=== PATIENT | female | born 1975 | race Caucasian/White ===

== ENCOUNTER → 2020-12-22 | Outpatient (REF) | payer MEDICARE, MEDICAID ==
[2020-12-22 15:26] LABS: HEMATOCRIT 39.5 % (36.0-47.0); HEMOGLOBIN 13.1 g/dl (12.0-15.5); MEAN CORPUSCULAR HEMOGLOBIN 31.6 pg (27.0-33.0); MEAN CORPUSCULAR HGB CONC 33.2 g/dl (32.0-36.5); MEAN CORPUSCULAR VOLUME 95.4 fl (80.0-96.0); PLATELET COUNT, AUTOMATED 193 10^3/uL (150-450); RED BLOOD COUNT 4.14 10^6/uL (4.00-5.40); WHITE BLOOD COUNT 6.1 10^3/uL (4.0-10.0)
[2020-12-22 15:34] LABS: FREE T4 0.91 NG/DL (0.76-1.46); THYROID STIMULATING HORMONE 1.1 uIU/ML (0.358-3.740)
[2020-12-22 15:35] LABS: FOLLICLE STIMULATING HORMONE 10.4 mIU/mL; LUTEINIZING HORMONE 4.6 mIU/mL
== END ==
LOC: M PLALAB 12:04
PROVIDERS: ATTEND Obstetrics & Gynecology
DX: N92.1 Excessive and frequent menstruation with irregular cycle (principal); N94.6 Dysmenorrhea, unspecified

== ENCOUNTER → 2021-01-19 | Outpatient (REF) | payer MEDICARE, MEDICAID | LOC: M PLALAB 15:14 | PROVIDERS: ATTEND Obstetrics & Gynecology | DX: Z12.4 Encounter for screening for malignant neoplasm of cervix (principal); R87.618 Other abnormal cytological findings on specimens from cervix uteri | CPT/HCPCS: 87624; G0101; G0123 ==

== ENCOUNTER → 2021-02-07 | Outpatient (CLI) | payer MEDICARE, MEDICAID ==
--- NOTE | 2021-02-07 12:50 | REPMRS ---
Patient History The patient states she has not had a clinical breast exam in over a year. Family history of breast cancer at age 55 in maternal grandmother, breast cancer in paternal grandmother, breast cancer at age 60 in maternal aunt, prostate cancer at age 57 in maternal uncle. Patient states no breast complaints today. Patient has signed MRS History Sheet. Digital Woman Screen Mammo: February 07, 2021 - Exam #: [id number] Bilateral CC and MLO view(s) were taken. Technologist: Chyna Mcmullen, Technologist No prior studies available for comparison. FINDINGS: The breast tissue is heterogeneously dense. This may lower the sensitivity of mammography. The Volpara volumetric breast density category is: C. There is no evidence of dominant mass, architectural distortion, or grouped microcalcification typical of malignancy. 3-D tomosynthesis shows no additional findings. Assessment: BI-RADS/ACR category 1 mammogram. Negative Mammogram. Recommendation Routine screening mammogram of both breasts in 1 year (for women over age 40). This patient's [facility] Lifetime Breast Cancer RIsk is estimated at 19.1 %. This mammogram was interpreted with the aid of an FDA-approved computer-aided dectection system. Electronically Signed By: Samuel Mendez MD 02/07/21 1750
== END ==
LOC: M WHC 12:13
PROVIDERS: ATTEND Obstetrics & Gynecology
DX: Z12.31 Encounter for screening mammogram for malignant neoplasm of breast (principal)

== ENCOUNTER → 2021-02-21 | Outpatient (CLI) | payer MEDICARE, MEDICAID ==
[~2021-02-21] MED LIST: ATIV1TAB10 PO; CLON0.2T PO; FLUTISP; LITH300C PO; PROZ40CA PO
== END ==
LOC: M LABSMTC 09:52
PROVIDERS: ATTEND Anesthesiology
DX: Z01.818 Encounter for other preprocedural examination (principal); Z11.52 Encounter for screening for COVID-19

== ENCOUNTER 2021-02-25 07:46 | Day surgery (SDC) | payer MEDICARE, MEDICAID ==
[~2021-02-25] VITALS: Ht 162.6 cm; Wt 71.8 kg
[~2021-02-25 07:46] MED LIST changes: +BUPIVACAINE HCL 0.25% 30ML VIAL As Ordered ONE; +LR 1,000 ML IV ONE; +SILVER NITRATE APPLICATOR As Ordered ONE
[2021-02-25 08:08] LABS: HEMATOCRIT 42.8 % (36.0-47.0); HEMOGLOBIN 14.8 g/dl (12.0-15.5)
[2021-02-25] MEDS ORDERED: ASPI81TA26 PO (08:10)
[2021-02-25] MEDS ORDERED: SUCR1ORA PO (08:10)
[2021-02-25] MEDS ORDERED: PAXI37.56 PO (08:10)
[2021-02-25 08:34] LABS: HCG, SERUM QUALITATIVE NEGATIVE (NEGATIVE)
[2021-02-25] MEDS ORDERED: VENTAER INH (08:43)
[2021-02-25] MEDS ORDERED: PERC5TAB12 PO (09:03)
[2021-02-25] MEDS ORDERED: COLA100C5 PO (09:03)
[2021-02-25] MEDS ORDERED: MIDAZOLAM INJ 2MG/2ML VIAL (J2250 PER 1MG) As Ordered ONE (11:31)
[2021-02-25] MEDS ORDERED: dexameTHASONE 4 MG/ML 1ML VIAL (J1100 PER 1MG) As Ordered ONE (11:32)
[2021-02-25] MEDS ORDERED: LIDOCAINE 2% 100MG/5ML SDV (FOR ANES.) As Ordered ONE (11:32)
[2021-02-25] MEDS ORDERED: propofoL 200 MG/20 ML VIAL As Ordered ONE ×2 (11:32→12:59)
[2021-02-25] MEDS ORDERED: ROCURONIUM BROMIDE 50 MG/5 ML VIAL As Ordered ONE (11:32)
[2021-02-25] MEDS ORDERED: fentaNYL 100 MCG/2 ML INJECTION (J3010) As Ordered ONE ×2 (12:30→14:42)
[2021-02-25] MEDS ORDERED: BUPIVACAINE HCL 0.25% 30ML VIAL As Ordered ONE (12:33)
[2021-02-25] MEDS ORDERED: ACETAMINOPHEN 1000MG 100ML IV BTL (OFIRMEV) (J0131 PER 10MG) As Ordered ONE (12:50)
[2021-02-25] MEDS ORDERED: GLYCOPYRROLATE INJ 0.2 MG/ML 2 ML VIAL As Ordered ONE (12:53)
[2021-02-25] MEDS ORDERED: METOCLOPRAMIDE INJ 10MG/2ML VIAL (J2765 PER 1) As Ordered ONE (13:00)
[2021-02-25] MEDS ORDERED: ONDANSETRON 4MG/2ML VIAL As Ordered ONE (13:00)
[2021-02-25] MEDS ORDERED: SUGAMMADEX SODIUM 500 MG/5 ML VIAL (BRIDION) As Ordered ONE (13:00)
[2021-02-25] MEDS ORDERED: HYDROmorphone HCL 2 MG/ML 1ML VIAL (J1170) As Ordered ONE (13:50)
[2021-02-25] MEDS ORDERED: HYDROMORPHONE HCL 0.5 MG/ 0.5 ML SYRINGE (J1170 PER 1) IV PRN (14:45)
[2021-02-25] MEDS ORDERED: ONDANSETRON 4MG/2ML VIAL IV PRN (14:45)
[2021-02-25] MEDS ORDERED: LR 1,000 ML IV SCH (14:45)
[2021-02-25] MEDS: fentaNYL 100 MCG/2 ML INJECTION (J3010) IV PRN ×4 (14:54→15:16)
[2021-02-25] MEDS: oxyCODONE 5MG TAB PO PRN ×2 (15:07→15:34)
--- NOTE | 2021-02-25 16:06 | RO ---
OPERATIVE NOTE DATE OF OPERATION: 02/25/2021 PREOPERATIVE DIAGNOSIS: Menorrhagia and dysmenorrhea. POSTOPERATIVE DIAGNOSIS: Menorrhagia, dysmenorrhea, intraabdominal adhesions, uterine anomaly. PROCEDURE PERFORMED: Diagnostic and operative laparoscopy with lysis of adhesions; bilateral salpingectomy and diagnostic hysteroscopy. 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 ANESTHESIA: INDICATION FOR OPERATION: Karin is a 45-year-old G7, now 6,0,1,6 who presented to the office with complaints of menorrhagia and dysmenorrhea. She has history of vaginal sling for urinary incontinence as well as laparoscopic bilateral tubal ligation. We discussed doing a diagnostic laparoscopy, possible opportunistic bilateral salpingectomy and when counseled on all options for treatment of menorrhagia she elected to try the NovaSure endometrial ablation. MATERIAL FORWARDED TO THE LAB: Bilateral fallopian tubes. DESCRIPTION OF FINDINGS: Uterus sounded to 8 cm. Cervix 4 cm in length. Laparoscopic findings included normal appearing liver edge and appendix, although the cecum and bowel on the right side was adhered to the right sidewall with filmy adhesions. The ovaries were normal in appearance. 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 The uterus was overall normal in appearance with the exception of some scarring at the intersection of the uterus and bladder and there were some filmy adhesions of the uterus to the pelvis near the right uterosacral. There was thick adhesion of the omentum to the anterior abdominal wall and on hysteroscopy there was a noted uterine anomaly. It was difficult for me to tell whether there was a very thick septum versus scarring within the uterus right at the center of the fundus but either way it would have been impossible to complete the NovaSure so that was not completed. INFECTION CLASSIFICATION: 2. ESTIMATED BLOOD LOSS: 10 mL. IV FLUIDS: 700 mL lactated Ringer's. URINE OUTPUT: 150 mL clear yellow urine. DESCRIPTION OF PROCEDURE: After obtaining informed consent the patient was taken to the operating room, general endotracheal anesthesia was established. She was placed in low lithotomy position. The patient was prepped and draped in usual sterile fashion. She was placed in Trendelenburg position, Olvera catheter was placed. Portage speculum was placed in the vagina and visualization of the cervix was obtained. Anterior lip of the cervix was grasped with single tooth tenaculum. Uterus sounded to 8 cm. The cervix itself was 4 cm. The [place]ka uterine manipulator was placed through the cervix into the uterus and the tenaculum was removed and site hemostasis obtained. The bivalve speculum was removed. The patient was taken out of Trendelenburg position and 5 mm incision was made on the infraumbilical fold beneath the subcutaneous tissue after anesthetizing with 0.25% Marcaine. Lower abdominal wall was manually grasped and lifted up and Optiview trocar was placed with 90 degree angle. The laparoscope was advanced through the port and intraabdominal placement was confirmed. There was no injury noted below the point of entry. Continuous flow CO2 began to establish pneumoperitoneum at 15 mmHg pressure. At that point I placed two other 5 mm incisions on the patient's right side, one in the right lower quadrant and one in the right upper quadrant. The 5 mm incisions were made after anesthetizing with 0.25% Marcaine. 5 mm trocars were placed under direct visualization. Pelvic and abdominal surveys were conducted beginning at the anterior cul-de-sac and anterior portion of the uterus which showed scarring at the intersection of the bladder and uterus. The right and left fallopian tubes were interrupted by Falope rings. The round ligament, broad ligament and ovaries were observed with overall normal appearance. The posterior cul-de-sac was overall normal with the exception of some filmy adhesions near the right uterosacral ligament from the uterus to the pelvic wall. Survey of the upper abdomen revealed normal appearing appendix but the cecum and bowel near there were adhered with filmy adhesions to the right abdominal wall. The liver edge itself was normal in appearance. Gallbladder was not visualized. There was a large sheet of omentum that was adhered to the anterior abdominal wall. I first removed the fallopian tubes, lifting up the fimbriated end and undermining with the LigaSure device just underneath the fallopian tube, first on the right side and then on the left, removing the full length of the tube including the Falope ring on both right and left sides. They were removed up through the port and sent off to pathology. At this point I took down some of the filmy adhesions near the right uterosacral ligament to open up that space. I was looking for a potential area to biopsy given that my suspicion is these adhesions are related to endometriosis but there was no obvious power burn lesion or any area that would have been discrete sample that would have been good for biopsy. At that point I took down the adhesions that were filmy near the cecum, trying to return the cecum more to its anatomical position. Lastly I did adhesiolysis of the omentum ensuring there was no bowel whatsoever involved in the adhesion, there was only omentum, and making small windows opening up the LigaSure blades and then taking down the __ slowly. I was able to take down the majority of the omental sheet but I left the left furthest aspect of omentum that was adhered still to the left sidewall. There were holes or anywhere the bowel could have come through but I thought at that point that the gain she would have would be minimal. At that point the procedure was terminated. I continued to observe the omentum as the pneumoperitoneum was released to ensure there was no bleeding, which there was not. I removed the trocars on the right side of the abdomen under direct visualization and those were noted to be hemostatic. The pneumoperitoneum was completely released prior to removal of the umbilical port. The incisions were reapproximated with 4-0 Monocryl and Dermabond. At that point I returned my attention to the vagina. The speculum was reinserted and the eyetokka uterine manipulator was removed. A single tooth tenaculum was replaced on the anterior aspect of the cervix and I dilated the cervix using Hanks dilators just to the point where I could then insert the camera to perform the hysteroscopy. The camera was placed up into the fundus of the uterus and with distention from the saline I could then visualize the uterine cavity. It was noted to be abnormal because there was either a very thick septum versus thick scarring at the fundal aspect in the midline of the uterus. I was able to see the ostia of the uterus but there would have been no way to perform the NovaSure safely. So at that point the fluid was removed along with the camera from the uterus. Tenaculum was removed from the anterior portion of the cervix and noted to be hemostatic at the tenaculum sites. The speculum was removed with nothing retained in the vagina and the Olvera catheter was then deflated as well. All counts were correct x2. The patient tolerated the procedure well. She was awakened from general anesthesia and taken to the recovery room in stable condition.
[2021-02-25 16:50] VITALS: BP 94/53
== END 2021-02-25 16:50 | disposition home or self-care (01) ==
LOC: M SDC 07:46
PROVIDERS: ATTEND Obstetrics & Gynecology
DX: N92.0 Excessive and frequent menstruation with regular cycle (principal); N94.6 Dysmenorrhea, unspecified; K66.0 Peritoneal adhesions (postprocedural) (postinfection); J45.909 Unspecified asthma, uncomplicated; Z87.19 Personal history of other diseases of the digestive system; F41.9 Anxiety disorder, unspecified; F32.9 Major depressive disorder, single episode, unspecified; F43.10 Post-traumatic stress disorder, unspecified; I25.2 Old myocardial infarction; E55.9 Vitamin D deficiency, unspecified; G47.00 Insomnia, unspecified; F40.00 Agoraphobia, unspecified; R00.2 Palpitations; F17.210 Nicotine dependence, cigarettes, uncomplicated; Z88.5 Allergy status to narcotic agent; Z88.1 Allergy status to other antibiotic agents; Z79.899 Other long term (current) drug therapy; Z79.82 Long term (current) use of aspirin
CPT/HCPCS: 36415; 58555; 58661; 84703; 85014; 85018; 86850; 86900; 86901; 88302; J0131; J1100; J1170; J2250; J2405; J2765; J3010

== ENCOUNTER 2022-06-09 08:26 | Day surgery (SDC) | payer MEDICARE, MEDICAID ==
[~2022-06-09] VITALS: Ht 162.6 cm; Wt 71.8 kg
[~2022-06-09 08:26] MED LIST changes: +AMOX875T2 PO; +ASPI81TA26 PO; -BUPIVACAINE HCL 0.25% 30ML VIAL As Ordered ONE; +COLA100C5 PO; +ELIQ5TAB PO; +ENOX40IN3 SC; +FERR325T3 PO; +GABA-282 PO; -LR 1,000 ML IV ONE; +METO1TAB32 PO; +NITR100C2 PO; +OFLOSO OTIC; +PARO37.510 PO; +PERC5TAB12 PO; +PROP20TA72 PO; +ROSU10TA6 PO; -SILVER NITRATE APPLICATOR As Ordered ONE; +SUCR1ORA PO; +VENTAER INH; +WARF-23 PO; +WARF4TAB51 PO; +XARE10TA PO; +ceFAZolin SOD 2 GM in IV 1 EA IV ONE
[2022-06-09] MEDS ORDERED: LR 1,000 ML IV SCH ×2 (09:10→12:25)
[2022-06-09 09:23] LABS: HEMATOCRIT 41.1 % (36.0-47.0); HEMOGLOBIN 14.4 g/dl (12.0-15.5); MEAN CORPUSCULAR HEMOGLOBIN 32.7 pg (27.0-33.0); MEAN CORPUSCULAR VOLUME 93.2 fl (80.0-96.0); PLATELET COUNT, AUTOMATED 151 10^3/uL (150-450); RED BLOOD COUNT 4.41 10^6/uL (4.00-5.40); WHITE BLOOD COUNT 5.2 10^3/uL (4.0-10.0)
[2022-06-09] MEDS ORDERED: fentaNYL 250 MCG/5 ML INJECTION As Ordered ONE (10:04)
[2022-06-09] MEDS ORDERED: ACETAMINOPHEN 1000MG 100ML IV BTL (OFIRMEV) (J0131 PER 10MG) As Ordered ONE (10:04)
[2022-06-09] MEDS ORDERED: ROCURONIUM BROMIDE 50 MG/5 ML VIAL As Ordered ONE ×2 (10:04→10:46)
[2022-06-09] MEDS ORDERED: LIDOCAINE 2% 100MG/5ML SDV (FOR ANES.) As Ordered ONE (10:04)
[2022-06-09] MEDS ORDERED: propofoL 200 MG/20 ML VIAL As Ordered ONE (10:04)
[2022-06-09] MEDS ORDERED: dexameTHASONE 4 MG/ML 1ML VIAL (J1100 PER 1MG) As Ordered ONE (10:04)
[2022-06-09] MEDS ORDERED: METOCLOPRAMIDE INJ 10MG/2ML VIAL (J2765 PER 1) As Ordered ONE (10:04)
[2022-06-09] MEDS ORDERED: SUGAMMADEX SODIUM 500 MG/5 ML VIAL (BRIDION) As Ordered ONE (10:04)
[2022-06-09] MEDS ORDERED: HYDROmorphone HCL 2MG/ML 1ML VIAL As Ordered ONE (10:04)
[2022-06-09] MEDS ORDERED: ONDANSETRON 4MG 2ML VIAL As Ordered ONE (10:04)
[2022-06-09] MEDS ORDERED: KETOROLAC 60MG 2ML VIAL As Ordered ONE (10:04)
[2022-06-09] MEDS ORDERED: MIDAZOLAM INJ 2MG/2ML VIAL (J2250 PER 1MG) As Ordered ONE (10:04)
[2022-06-09] MEDS ORDERED: BUPIVACAINE HCL 0.25% 30ML VIAL As Ordered ONE (10:23)
[2022-06-09] MEDS ORDERED: ONDANSETRON 4MG 2ML VIAL IV PRN (12:00)
[2022-06-09] MEDS: fentaNYL 100 MCG/2 ML INJECTION IV PRN ×4 (12:15→12:38)
[2022-06-09] MEDS ORDERED: PERCOCET 5MG/325MG TAB PO PRN ×2 (12:25)
[2022-06-09] MEDS: oxyCODONE 5MG TAB PO PRN ×2 (12:27→13:12)
[2022-06-09] MEDS ORDERED: PROMETHAZINE 25MG/ML 1ML VIAL IV PRN (12:30)
[2022-06-09] MEDS: HYDROMORPHONE HCL 0.5 MG/ 0.5 ML SYRINGE (J1170 PER 1) IV PRN ×2 (12:38→13:07)
[2022-06-09 14:30] VITALS: BP 100/55
[2022-06-09] MEDS ORDERED: ONDA4TAB6 PO (15:30)
[2022-06-09] MEDS ORDERED: KETOROLAC 30 MG/ML 1ML VIAL IV SCH (16:00)
== END 2022-06-09 15:00 | disposition home or self-care (01) ==
LOC: M SDC 08:26
PROVIDERS: ATTEND Obstetrics & Gynecology
DX: N87.9 Dysplasia of cervix uteri, unspecified (principal); N93.9 Abnormal uterine and vaginal bleeding, unspecified; Z86.718 Personal history of other venous thrombosis and embolism; F17.200 Nicotine dependence, unspecified, uncomplicated; Z88.5 Allergy status to narcotic agent; Z88.1 Allergy status to other antibiotic agents
CPT/HCPCS: 36415; 58570; 85027; 86850; 86900; 86901; 88307; J0131; J0690; J1100; J1170; J1885; J2250; J2405; J2550; J2765; J3010; S2900

== ENCOUNTER 2022-06-18 15:47 | Emergency (ER) | payer MEDICARE, MEDICAID ==
[~2022-06-18] VITALS: Ht 162.6 cm; Wt 70.2 kg
[~2022-06-18 15:47] MED LIST changes: +ONDA4TAB6 PO; -ceFAZolin SOD 2 GM in IV 1 EA IV ONE
[2022-06-18 17:26] LABS: BASO # 0.1 10^3/uL (0.0-0.2); BASO % 0.8 % (0.0-1.0); EOS # 0.1 10^3/uL (0.0-0.5); EOS % 1.5 % (0.0-3.0); HEMATOCRIT 44.5 % (36.0-47.0); LYMPH # 2.1 10^3/uL (1.5-5.0); LYMPH % 35.5 % (24.0-44.0); MEAN CORPUSCULAR HEMOGLOBIN 31.3 pg (27.0-33.0); MEAN CORPUSCULAR HGB CONC 33.7 g/dl (32.0-36.5); MEAN CORPUSCULAR VOLUME 92.7 fl (80.0-96.0); MONO # 0.5 10^3/uL (0.0-0.8); MONO % 8.9 % (2.0-8.0); NEUTROPHILS # 3.1 10^3/uL (1.5-8.5); NEUTROPHILS % 52.6 % (36.0-66.0); PLATELET COUNT, AUTOMATED 224 10^3/uL (150-450)
[2022-06-18 17:56] LABS: BLOOD UREA NITROGEN 15 MG/DL (7-18); CALCIUM LEVEL 9.5 MG/DL (8.5-10.1); CARBON DIOXIDE LEVEL 29 MEQ/L (21-32); CHLORIDE LEVEL 103 MEQ/L (98-107); CREATININE FOR GFR 0.78 MG/DL (0.55-1.30); GLOMERULAR FILTRATION RATE > 60.0 (>58); GLUCOSE, FASTING 84 MG/DL (70-100); POTASSIUM SERUM 4.4 MEQ/L (3.5-5.1); SODIUM LEVEL 137 MEQ/L (136-145)
[2022-06-18] MEDS ORDERED: NS 1,000 ML IV ONE (18:40)
[2022-06-18] MEDS ORDERED: ISOVUE-370 76% 100ML VIAL As Ordered ONE (18:44)
[2022-06-18] MEDS ORDERED: BENZONATATE 100MG CAPSULE PO ONE (20:35)
[2022-06-18] MEDS ORDERED: CEFDINIR 300 MG CAP (OMNICEF) PO ONE (20:35)
[2022-06-18] MEDS ORDERED: CEFD300C PO (20:36)
[2022-06-18] MEDS ORDERED: BENZ200C70 PO (20:36)
[2022-06-18] MEDS ORDERED: DOXY100C81 PO (20:36)
[2022-06-18 20:48] VITALS: BP 156/72
== END 2022-06-18 20:50 | disposition home or self-care (01) ==
LOC: M ED 15:47
DX: N99.820 Postprocedural hemorrhage of a genitourinary system organ or structure following a genitourinary system procedure (principal); J18.9 Pneumonia, unspecified organism; Z86.711 Personal history of pulmonary embolism; F32.A Depression, unspecified; F41.9 Anxiety disorder, unspecified; I25.10 Atherosclerotic heart disease of native coronary artery without angina pectoris; F17.200 Nicotine dependence, unspecified, uncomplicated; Z88.5 Allergy status to narcotic agent; Z88.8 Allergy status to other drugs, medicaments and biological substances; Z79.899 Other long term (current) drug therapy
CPT/HCPCS: 74177; 80048; 81000; 85025; 86850; 86900; 86901; 87086; 96360; 96361; 99284; Q9967

== ENCOUNTER 2024-08-27 10:20 | Day surgery (SDC) | payer MEDICARE, MEDICAID ==
[~2024-08-27] VITALS: Ht 162.6 cm; Wt 68.5 kg
[~2024-08-27 10:20] MED LIST changes: +ARIP1TAB4 PO; +BENZ200C70 PO; +CEFD300C PO; +CLON-412 PO; +DOXY100C82 PO; +GABA-1172 PO; -GABA-282 PO; +ONDA-282 PO; -ONDA4TAB6 PO; +PANT40TA29 PO; +PARO40TA2 PO; +PRAZ2CAP PO; -ROSU10TA6 PO; +ROSU10TA61 PO; +ROSU20TA86 PO; +VALA500T5 PO; +XARE20TA PO
[2024-08-27] MEDS ORDERED: LOVE1INJ SC (10:35)
[2024-08-27] MEDS: IPRATROPIUM 0.5MG/ALBUTEROL 2.5MG INH SOL UD 3ML (DUONEB) NEB ONE (11:32)
[2024-08-27] MEDS ORDERED: fentaNYL 100 MCG/2 ML INJECTION As Ordered ONE (12:26)
[2024-08-27] MEDS ORDERED: propofoL 200 MG/20 ML VIAL As Ordered ONE (12:33)
[2024-08-27] MEDS ORDERED: LIDOCAINE 2% 100MG/5ML SDV (FOR ANES.) As Ordered ONE (12:34)
[2024-08-27 12:54] VITALS: TEMP 97.5
[2024-08-27 13:14] VITALS: BP 125/62; O2SAT 96
== END 2024-08-27 13:24 | disposition home or self-care (01) ==
LOC: M OPP 10:20
PROVIDERS: ATTEND Surgery
DX: Z12.11 Encounter for screening for malignant neoplasm of colon (principal); K63.5 Polyp of colon; K64.4 Residual hemorrhoidal skin tags; K31.89 Other diseases of stomach and duodenum; R13.10 Dysphagia, unspecified; K30 Functional dyspepsia; Z88.5 Allergy status to narcotic agent; Z88.8 Allergy status to other drugs, medicaments and biological substances; Z79.01 Long term (current) use of anticoagulants; Z79.899 Other long term (current) drug therapy; F17.210 Nicotine dependence, cigarettes, uncomplicated; I25.2 Old myocardial infarction
CPT/HCPCS: 43239; 45380; 88305; J3010